=== PATIENT | male | born 1995 | race Caucasian/White ===

== ENCOUNTER 2023-10-14 14:28 | Outpatient (CLI) | payer BC, SELFPAY ==
--- NOTE | ~2023-10-14 | MR_ITS ---
EXAMINATION: MR lumbar spine wo con DATE: 10/14/2023 14:53 INDICATION: Low back pain. TECHNIQUE: Magnetic resonance imaging (MRI) of the lumbar spine was performed without intravenous con trast. Sequences included sagittal T2-weighted FSE, sagittal T2-weighted FS FSE, sagittal T1-weighted FSE, and axial T2-weighted FSE. COMPARISON: None FINDINGS: Bone alignment is normal. There is mild chronic anterior wedging of T12 and L1 vertebral alvina dies, likely physiologic. There is mildly decreased disc height at L4-L5 and moderately decreased dis c height at L5-S1. The distal spinal cord signal intensity is normal. The conus medullaris is at T12- L1. The following disc levels are specifically discussed: L1-L2: The disc does not extend beyond the endplate margin. There is mild bilateral facet joint osteo arthritis. There is no neural foraminal stenosis. There is no central canal stenosis. L2-L3: The disc does not extend beyond the endplate margin. There is severe bilateral facet joint ost eoarthritis. There is no neural foraminal stenosis. There is no central canal stenosis. L3-L4: The disc does not extend beyond the endplate margin. There is moderate bilateral facet joint o steoarthritis. There is no neural foraminal stenosis. There is no central canal stenosis. L4-L5: The disc is bulging and has an annular fissure. There is moderate bilateral facet joint osteoa rthritis. There is mild bilateral neural foraminal stenosis. There is mild central canal stenosis. L5-S1: There is a large central extrusion. There is mild bilateral facet joint osteoarthritis. There is mild bilateral neural foraminal stenosis. There is severe central canal stenosis. IMPRESSION: 1. Large extrusion at L5-S1 with severe central canal stenosis. Reviewed, dictated and finalized at location A.
== END 2023-10-14 14:29 ==
LOC: MICIMG 14:29
PROVIDERS: PCP Family Medicine Adolescent Medicine; Visit Provider Family Medicine Adolescent Medicine
DX: R20.2 Paresthesia of skin (principal); M51.27 Other intervertebral disc displacement, lumbosacral region
CPT/HCPCS: 72148